=== PATIENT | female | born 1975 ===

== ENCOUNTER 2018-08-15 06:30 | Day surgery (SDC) | payer OTHER ==
[~2018-08-15 06:30] MED LIST: ATIVAN0.5 M1 PO; DOXIPIN PO; PAXIL30 MG PO; SEROQUEL200 MG PO; SEROQUEL400 MG PO; SYNTHROID150 MCG PO; TRAZODONE HCL300 MG PO
[2018-08-15] MEDS ORDERED: ZITHROMAX200 MG PO (11:32)
== END 2018-08-15 16:40 | disposition home or self-care (01) ==
LOC: CIR.AMB 06:30
DX: N72 Inflammatory disease of cervix uteri (principal)

== ENCOUNTER 2019-05-22 06:41 | Day surgery (SDC) | payer OTHER ==
[~2019-05-22 06:41] MED LIST changes: +FLEXERIL PO; +LYRICA150 MG PO; +RAN PO; +SAVELLA100 MG PO; +ZITHROMAX200 MG PO
[2019-05-22] MEDS ORDERED: NAPROXEN250 MG PO (10:28)
== END 2019-05-22 15:00 | disposition home or self-care (01) ==
LOC: CIR.AMB 06:41
DX: N93.8 Other specified abnormal uterine and vaginal bleeding (principal)

== ENCOUNTER 2022-10-19 06:57 | Day surgery (SDC) | payer OTHER ==
[~2022-10-19 06:57] MED LIST changes: +ALBUTERO IH; +FLONASE ALLERG9.9 ML; +NAPROXEN250 MG PO; +SINGULAIR 10MG10 MG PO; +SYNTH; +WELLBUTRIN XL150 M1 PO; +ZOLOFT100 MG PO
== END 2022-10-19 13:10 | disposition home or self-care (01) ==
LOC: CIR.AMB 06:57
PROVIDERS: ATTEND Obstetrics & Gynecology
DX: N93.9 Abnormal uterine and vaginal bleeding, unspecified (principal); N92.0 Excessive and frequent menstruation with regular cycle; Z88.7 Allergy status to serum and vaccine; Z91.041 Radiographic dye allergy status